=== PATIENT | male | born 1955 | race Caucasian/White ===

== ENCOUNTER 2018-03-17 06:27 | Inpatient (IN) | payer OTHER ==
[2018-03-17] MEDS ORDERED: ONDANSETRON 4 MG INJ (07:00)
[2018-03-17] MEDS ORDERED: MIDAZOLAM 1 MG/ML 2 ML INJ (07:57)
[2018-03-17] MEDS ORDERED: morphine SULFATE/PF (10 MG/10 ML) INJ (07:57)
[2018-03-17] MEDS: TRANEXAMIC ACID IV (08:00)
[2018-03-17] MEDS: DEXTROSE 5% IV (08:00)
[2018-03-17] MEDS ORDERED: METOCLOPRAMIDE 10 MG INJ (08:05)
[2018-03-17] MEDS ORDERED: CEFAZOLIN 1 GM INJ (08:13)
[2018-03-17] MEDS ORDERED: ACETAMINOPHEN 1000MG/100ML IV 100 ML (08:13)
[2018-03-17] MEDS ORDERED: PROPOFOL 20 ML (08:13)
[2018-03-17] MEDS ORDERED: FENTAnyl 50 MCG/ML VIAL (08:14)
[2018-03-17] MEDS ORDERED: ROPIVACAINE 0.2% 20 ML VIAL (08:20)
[2018-03-17] MEDS ORDERED: EPHEDrine SULFATE 50 MG/5 ML SYG (08:45)
[2018-03-17] MEDS ORDERED: LABETALOL HCL 20MG INJ IV (09:00)
[2018-03-17] MEDS ORDERED: DIPHENHYDRAMINE 50 MG INJ IV (09:00)
[2018-03-17] MEDS ORDERED: MEPERIDINE 25 MG INJ IV (09:00)
[2018-03-17] MEDS ORDERED: EPHEDrine SULFATE 50 MG/5 ML SYG IV (09:00)
[2018-03-17] MEDS ORDERED: hydrALAzine 20 MG INJ IV (09:00)
[2018-03-17] MEDS ORDERED: HYDROmorphONE 1 MG/5 ML IV SYRINGE IV ×3 (09:00)
[2018-03-17] MEDS ORDERED: NALOXONE (0.4 MG/ML) INJ IV (11:00)
[2018-03-17] MEDS ORDERED: MAGNESIUM HYDROXIDE 30ML CUP PO (11:00)
[2018-03-17] MEDS ORDERED: morphine 2 MG INJ IV (11:00)
[2018-03-17] MEDS ORDERED: SENNA/DOCUSATE NA (8.6MG/50MG) TAB PO (11:00)
[2018-03-17] MEDS ORDERED: CEFAZOLIN 1 GM/50 ML (PMX) 50 ML IVPB (11:14)
[2018-03-17] MEDS: CEFAZOLIN 1 GM/50 ML (PMX) 50 ML IVPB ×2 (11:24→19:35)
[2018-03-17] MEDS: ONDANSETRON 4 MG INJ IV ×3 (11:24→17:35)
[2018-03-17] MEDS: SOD CHLORIDE 0.9% 1,000 ML IV ×2 (12:54→22:24)
[2018-03-17] MEDS ORDERED: GLUCAGON 1 MG INJ IM (18:00)
[2018-03-17] MEDS ORDERED: DEXTROSE 50% 50 ML SYRINGE IV ×2 (18:00)
[2018-03-17] MEDS ORDERED: GLUCOSE GEL 15 GRAM TUBE PO ×2 (18:00)
[2018-03-17] MEDS ORDERED: GLUCOSE GEL 15 GRAM TUBE BUCCAL (18:00)
[2018-03-17] MEDS: metFORMIN 500 MG TAB PO (18:14)
[2018-03-17] MEDS: glipiZIDE 10 MG TAB PO (18:49)
[2018-03-17] MEDS: oxyCODONE 5 MG TAB PO ×2 (18:49→22:23)
[2018-03-17] MEDS: GABAPENTIN 300 MG CAP PO (21:23)
[2018-03-17] MEDS: ATORVASTATIN 10 MG TAB PO (21:23)
[2018-03-17] MEDS: INSULIN GLARGINE [LANtus] 3 ML PEN SC (21:29)
[2018-03-18] MEDS: oxyCODONE 5 MG TAB PO ×5 (02:43→22:30)
[2018-03-18] MEDS: CEFAZOLIN 1 GM/50 ML (PMX) 50 ML IVPB (04:49)
[2018-03-18 05:10] LABS: ADD MAN DIFF? NO
[2018-03-18 05:15] LABS: WHITE BLOOD COUNT 10.4 10^3/ul (4.8-10.8)
[2018-03-18 05:15] LABS: BASOPHILS % 0.4 % (0.0-2.0); EOSINOPHILS % 0.1 % (0.0-7.0); HEMATOCRIT 33.4 % (42.0-52.0); HEMOGLOBIN 10.7 g/dl (14.0-18.0); LYMPHOCYTES # 1.9 10^3/ul (0.8-2.9); LYMPHOCYTES % 18.7 % (15.0-51.0); MEAN CORPUSCULAR HEMOGLOBIN 28.5 pg (29.0-33.0); MEAN CORPUSCULAR VOLUME 88.8 fl (82.0-101.0); MONOCYTE # 1.5 10^3/ul (0.3-0.9); MONOCYTES % 13.9 % (0.0-11.0); NEUTROPHIL # 6.9 10^3/ul (1.6-7.5); NEUTROPHILS % 66.6 % (39.0-77.0); PLATELET COUNT 225 10^3/UL (140-415); RED BLOOD COUNT 3.76 10^6/ul (4.70-6.10)
[2018-03-18 05:40] LABS: ANION GAP 11 (5-13); BLOOD UREA NITROGEN 12 mg/dl (7-20); CALCIUM 8.3 mg/dl (8.4-10.2); CARBON DIOXIDE 26 mmol/L (21-31); CHLORIDE 104 mmol/L (97-110); CREATININE 1.06 mg/dl (0.61-1.24); Estimated GFR > 60 mL/min (>60); GLUCOSE 160 mg/dl (70-220); SODIUM 141 mmol/L (135-144)
[2018-03-18] MEDS: ONDANSETRON 4 MG INJ IV ×2 (06:27)
[2018-03-18] MEDS: glipiZIDE 10 MG TAB PO ×2 (09:01→17:25)
[2018-03-18] MEDS: ASPIRIN (EC) 325 MG TAB PO (09:02)
[2018-03-18] MEDS: DOCUSATE SODIUM 100 MG CAP PO ×2 (09:02→21:05)
[2018-03-18] MEDS: GABAPENTIN 300 MG CAP PO ×2 (09:02→21:05)
[2018-03-18] MEDS: metFORMIN 500 MG TAB PO ×2 (09:02→18:00)
[2018-03-18] MEDS: LINAGLIPTIN 5 MG TABLET PO (09:04)
[2018-03-18] MEDS: ATENOLOL 25 MG TAB PO ×2 (09:04→22:30)
[2018-03-18] MEDS: SOD CHLORIDE 0.9% 1,000 ML IV (11:39)
[2018-03-18] MEDS: ATORVASTATIN 10 MG TAB PO (21:05)
[2018-03-18] MEDS: INSULIN GLARGINE [LANtus] 3 ML PEN SC (22:29)
[2018-03-19] MEDS: ACETAMINOPHEN 325 MG TAB PO (02:16)
[2018-03-19] MEDS: hydrALAzine 20 MG INJ IV (02:19)
[2018-03-19 05:34] LABS: ADD MAN DIFF? NO
[2018-03-19 05:42] LABS: ABNORMAL IP MESSAGE 1; BASOPHIL # 0.1 10^3/ul (0.0-0.1); BASOPHILS % 0.4 % (0.0-2.0); EOSINOPHILS % 0.1 % (0.0-7.0); HEMATOCRIT 30.8 % (42.0-52.0); HEMOGLOBIN 10.2 g/dl (14.0-18.0); MEAN CORPUSCULAR HEMOGLOBIN 28.5 pg (29.0-33.0); MEAN CORPUSCULAR HGB CONC 33.1 g/dl (32.0-37.0); MEAN PLATELET VOLUME 11.5 fl (7.4-10.4); MONOCYTE # 2.4 10^3/ul (0.3-0.9); MONOCYTES % 14.1 % (0.0-11.0); NEUTROPHIL # 11.3 10^3/ul (1.6-7.5); NEUTROPHILS % 66.8 % (39.0-77.0); PLATELET COUNT 215 10^3/UL (140-415); POSITIVE DIFF @See below; RED BLOOD COUNT 3.58 10^6/ul (4.70-6.10)
[2018-03-19 05:42] LABS: WHITE BLOOD COUNT 16.9 10^3/ul (4.8-10.8)
[2018-03-19 06:20] LABS: ANION GAP 10 (5-13); BLOOD UREA NITROGEN 16 mg/dl (7-20); CALCIUM 8.4 mg/dl (8.4-10.2); CARBON DIOXIDE 25 mmol/L (21-31); CHLORIDE 102 mmol/L (97-110); CREATININE 1.12 mg/dl (0.61-1.24); Estimated GFR > 60 mL/min (>60); GLUCOSE 154 mg/dl (70-220); POTASSIUM 3.5 mmol/L (3.5-5.1); SODIUM 137 mmol/L (135-144)
[2018-03-19] MEDS: oxyCODONE 5 MG TAB PO ×3 (07:43→21:27)
[2018-03-19 08:38] LABS: ADD UMIC NO; UR ASCORBIC ACID NEGATIVE (NEGATIVE); UR BILIRUBIN (Dip) NEGATIVE (NEGATIVE); UR BLOOD (Dip) NEGATIVE (NEGATIVE); UR CLARITY CLEAR (CLEAR); UR COLOR YELLOW (YELLOW); UR GLUCOSE (Dip) NEGATIVE (NEGATIVE); UR KETONES (Dip) NEGATIVE (NEGATIVE); UR LEUKOCYTE ESTERASE (Dip) NEGATIVE Leu/ul (NEGATIVE); UR NITRITE (Dip) NEGATIVE (NEGATIVE); UR SPECIFIC GRAVITY (Dip) 1.018 (1.003-1.030); UR TOTAL PROTEIN (Dip) NEGATIVE (NEGATIVE); UR UROBILINOGEN (Dip) 1+ mg/dL (NEGATIVE)
[2018-03-19] MEDS: ASPIRIN (EC) 325 MG TAB PO (08:51)
[2018-03-19] MEDS: DOCUSATE SODIUM 100 MG CAP PO ×2 (08:51→21:26)
[2018-03-19] MEDS: glipiZIDE 10 MG TAB PO ×2 (08:51→17:37)
[2018-03-19] MEDS: GABAPENTIN 300 MG CAP PO ×2 (08:52→21:27)
[2018-03-19] MEDS: LINAGLIPTIN 5 MG TABLET PO (08:52)
[2018-03-19] MEDS: metFORMIN 500 MG TAB PO ×2 (08:52→17:36)
[2018-03-19] MEDS: ATENOLOL 25 MG TAB PO ×2 (08:53→21:27)
[2018-03-19] MEDS ORDERED: ATENOLOL 25 MG TAB PO (09:00)
[2018-03-19] MEDS: ATORVASTATIN 10 MG TAB PO (21:26)
[2018-03-19] MEDS: INSULIN GLARGINE [LANtus] 3 ML PEN SC (21:35)
[2018-03-20 05:05] LABS: ADD MAN DIFF? NO
[2018-03-20 05:15] LABS: ABNORMAL IP MESSAGE 1; BASOPHIL # 0.1 10^3/ul (0.0-0.1); BASOPHILS % 0.3 % (0.0-2.0); EOSINOPHILS # 0.1 10^3/ul (0.0-0.5); EOSINOPHILS % 0.7 % (0.0-7.0); HEMATOCRIT 31.7 % (42.0-52.0); HEMOGLOBIN 10.5 g/dl (14.0-18.0); LYMPHOCYTES # 3.3 10^3/ul (0.8-2.9); LYMPHOCYTES % 18.1 % (15.0-51.0); MEAN CORPUSCULAR HEMOGLOBIN 28.8 pg (29.0-33.0); MEAN CORPUSCULAR HGB CONC 33.1 g/dl (32.0-37.0); MEAN CORPUSCULAR VOLUME 86.8 fl (82.0-101.0); MEAN PLATELET VOLUME 11.2 fl (7.4-10.4); MONOCYTE # 2.2 10^3/ul (0.3-0.9); MONOCYTES % 11.9 % (0.0-11.0); NEUTROPHIL # 12.3 10^3/ul (1.6-7.5); NEUTROPHILS % 68.3 % (39.0-77.0); PLATELET COUNT 252 10^3/UL (140-415); POSITIVE DIFF @See below; RED BLOOD COUNT 3.65 10^6/ul (4.70-6.10); RED CELL DISTRIBUTION WIDTH 14.1 % (11.5-14.5)
[2018-03-20 05:30] LABS: ANION GAP 10 (5-13); BLOOD UREA NITROGEN 18 mg/dl (7-20); CALCIUM 8.5 mg/dl (8.4-10.2); CARBON DIOXIDE 26 mmol/L (21-31); CHLORIDE 100 mmol/L (97-110); CREATININE 1.08 mg/dl (0.61-1.24); Estimated GFR > 60 mL/min (>60); GLUCOSE 146 mg/dl (70-220); POTASSIUM 3.7 mmol/L (3.5-5.1); SODIUM 136 mmol/L (135-144)
[2018-03-20] MEDS: GABAPENTIN 300 MG CAP PO ×2 (08:41→21:18)
[2018-03-20] MEDS: DOCUSATE SODIUM 100 MG CAP PO ×2 (08:42→21:16)
[2018-03-20] MEDS: metFORMIN 500 MG TAB PO ×2 (08:42→17:36)
[2018-03-20] MEDS: LINAGLIPTIN 5 MG TABLET PO (08:42)
[2018-03-20] MEDS: ASPIRIN (EC) 325 MG TAB PO (08:42)
[2018-03-20] MEDS: glipiZIDE 10 MG TAB PO ×2 (08:42→17:36)
[2018-03-20] MEDS: ATENOLOL 25 MG TAB PO ×2 (08:43→21:16)
[2018-03-20] MEDS: oxyCODONE 5 MG TAB PO ×4 (08:47→21:19)
[2018-03-20 15:05] LABS: ADD UMIC YES; UR ASCORBIC ACID NEGATIVE (NEGATIVE); UR BACTERIA FEW /HPF (NONE SEEN); UR BILIRUBIN (Dip) NEGATIVE (NEGATIVE); UR BLOOD (Dip) NEGATIVE (NEGATIVE); UR CLARITY CLEAR (CLEAR); UR COLOR YELLOW (YELLOW); UR GLUCOSE (Dip) NEGATIVE (NEGATIVE); UR KETONES (Dip) TRACE mg/dL (NEGATIVE); UR LEUKOCYTE ESTERASE (Dip) NEGATIVE Leu/ul (NEGATIVE); UR MUCUS FEW /HPF (NONE SEEN); UR NITRITE (Dip) NEGATIVE (NEGATIVE); UR RBC 0 /HPF (0-5); UR SPECIFIC GRAVITY (Dip) 1.021 (1.003-1.030); UR TOTAL PROTEIN (Dip) 1+ mg/dl (NEGATIVE); UR UROBILINOGEN (Dip) 1+ mg/dL (NEGATIVE); UR WBC 1 /HPF (0-5)
[2018-03-20] MEDS: LISINOPRIL 10 MG TAB PO (17:36)
[2018-03-20] MEDS: ATORVASTATIN 10 MG TAB PO (21:16)
[2018-03-20] MEDS: INSULIN GLARGINE [LANtus] 3 ML PEN SC (21:20)
[2018-03-21 05:05] LABS: ADD MAN DIFF? NO
[2018-03-21 05:12] LABS: ABNORMAL IP MESSAGE 1; BASOPHIL # 0.1 10^3/ul (0.0-0.1); BASOPHILS % 0.4 % (0.0-2.0); EOSINOPHILS # 0.3 10^3/ul (0.0-0.5); EOSINOPHILS % 1.9 % (0.0-7.0); HEMATOCRIT 30.1 % (42.0-52.0); HEMOGLOBIN 9.9 g/dl (14.0-18.0); LYMPHOCYTES % 21.7 % (15.0-51.0); MEAN CORPUSCULAR HEMOGLOBIN 28.9 pg (29.0-33.0); MEAN CORPUSCULAR HGB CONC 32.9 g/dl (32.0-37.0); MEAN CORPUSCULAR VOLUME 87.8 fl (82.0-101.0); MEAN PLATELET VOLUME 10.8 fl (7.4-10.4); MONOCYTE # 1.9 10^3/ul (0.3-0.9); MONOCYTES % 13.5 % (0.0-11.0); NEUTROPHIL # 8.6 10^3/ul (1.6-7.5); NEUTROPHILS % 61.8 % (39.0-77.0); NUCLEATED RED BLOOD CELLS% 0.1 /100WBC (0.0-0.0); PLATELET COUNT 278 10^3/UL (140-415); POSITIVE DIFF @See below; RED BLOOD COUNT 3.43 10^6/ul (4.70-6.10); RED CELL DISTRIBUTION WIDTH 14.1 % (11.5-14.5)
[2018-03-21 05:12] LABS: WHITE BLOOD COUNT 13.9 10^3/ul (4.8-10.8)
[2018-03-21 05:40] LABS: ANION GAP 8 (5-13); BLOOD UREA NITROGEN 20 mg/dl (7-20); CALCIUM 8.4 mg/dl (8.4-10.2); CARBON DIOXIDE 27 mmol/L (21-31); CHLORIDE 100 mmol/L (97-110); CREATININE 1.15 mg/dl (0.61-1.24); Estimated GFR > 60 mL/min (>60); GLUCOSE 176 mg/dl (70-220); POTASSIUM 3.9 mmol/L (3.5-5.1); SODIUM 135 mmol/L (135-144)
[2018-03-21] MEDS: glipiZIDE 10 MG TAB PO (08:24)
[2018-03-21] MEDS: metFORMIN 500 MG TAB PO (08:24)
[2018-03-21] MEDS: ASPIRIN (EC) 325 MG TAB PO (08:25)
[2018-03-21] MEDS: LINAGLIPTIN 5 MG TABLET PO (08:25)
[2018-03-21] MEDS: LISINOPRIL 10 MG TAB PO (08:25)
[2018-03-21] MEDS: GABAPENTIN 300 MG CAP PO (08:25)
[2018-03-21] MEDS: ATENOLOL 25 MG TAB PO (08:26)
== END 2018-03-21 15:40 | disposition home health service (06) | DRG 470 ==
LOC: REC 06:27 → MS1 11:43
PROVIDERS: Specialist
PROC: 0SRD0J9 Replacement of Left Knee Joint with Synthetic Substitute, Cemented, Open Approach (ICD-10-PCS; principal; 2018-03-17 07:53)
DX: M17.12 Unilateral primary osteoarthritis, left knee (principal); I10 Essential (primary) hypertension; E78.5 Hyperlipidemia, unspecified; E11.9 Type 2 diabetes mellitus without complications; Z79.4 Long term (current) use of insulin; D72.829 Elevated white blood cell count, unspecified
CPT/HCPCS: 71045; 73560; 80048; 81001; 81003; 82962; 85025; 86850; 86900; 86901; 87086; 88304; 88311; 93971; 97110; 97116; 97161; 97530